=== PATIENT | female | born 1965 | race Caucasian/White ===

== ENCOUNTER 2021-02-25 04:27 | Day surgery (SDC) | payer OTHER ==
[2021-02-24 12:32] VITALS: BMI 26.2
[2021-02-25] MEDS ORDERED: IOHEXOL 180 MG/1 ML ML IJ ONE ×2 (09:41)
[2021-02-25] MEDS ORDERED: LIDOCAINE HCL 1% PRESERVATIVE FREE - 30ML VIAL IJ ONE (09:41)
[2021-02-25] MEDS ORDERED: DEXAMETHASONE SOD PHOSPHATE 4 MG/1 ML VIAL IM ONE (09:49)
[2021-02-25 10:43] VITALS: BP 140/70; PULSE 58; TEMP 97.7
== END 2021-02-25 10:54 | disposition home or self-care (01) ==
LOC: JASU-SURG 04:27
PROVIDERS: ATTEND Pain Medicine Pain Medicine
PROC: 3E0R33Z Introduction of Anti-inflammatory into Spinal Canal, Percutaneous Approach (ICD-10-PCS; 2021-02-25)
PROC: B01BYZZ Fluoroscopy of Spinal Cord using Other Contrast (ICD-10-PCS; 2021-02-25)
PROC: 3E0R3BZ Introduction of Anesthetic Agent into Spinal Canal, Percutaneous Approach (ICD-10-PCS; principal; 2021-02-25 08:45)
DX: M54.14 Radiculopathy, thoracic region (principal)
CPT/HCPCS: 76000-TC-FY